=== PATIENT | female | born 1960 | race Two or more races ===

== ENCOUNTER 2018-02-24 19:07 | Inpatient (IN) | payer OTHER ==
[~2018-02-24] VITALS: Ht 162.6 cm; Wt 74.8 kg
[~2018-02-24 19:07] MED LIST: BENADRYL50 MG PO; MEDROLPACK PO; ZYRTEC10 M3 PO
[2018-03-02] MEDS ORDERED: PANTOPRAZOLE SO40 MG PO (12:51)
[2018-03-02] MEDS ORDERED: INTESTINEX680 M1 PO (12:51)
== END 2018-03-02 15:03 | disposition home or self-care (01) | DRG 446 ==
LOC: ER 19:07 → MEDI 19:28
PROC: 3E0336Z Introduction of Nutritional Substance into Peripheral Vein, Percutaneous Approach (ICD-10-PCS; principal; 2018-02-24)
DX: K80.00 Calculus of gallbladder with acute cholecystitis without obstruction (principal); E86.0 Dehydration; K52.89 Other specified noninfective gastroenteritis and colitis

== ENCOUNTER 2021-07-31 12:11 | Outpatient (CLI) | payer OTHER ==
[~2021-07-31 12:11] MED LIST changes: +INTESTINEX680 M1 PO; +PANTOPRAZOLE SO40 MG PO
== END 2021-07-31 12:14 | disposition home or self-care (01) ==
LOC: RAD 12:11
PROVIDERS: ATTEND Orthopaedic Surgery
DX: M79.672 Pain in left foot (principal)

== ENCOUNTER 2022-04-29 09:17 | Outpatient (CLI) | payer OTHER | END 2022-04-29 09:22 | disposition home or self-care (01) | LOC: RAD 09:17 | PROVIDERS: ATTEND Orthopaedic Surgery | DX: M79.671 Pain in right foot (principal); M79.672 Pain in left foot ==